=== PATIENT | female | born 1965 | race Caucasian/White ===

== ENCOUNTER 2017-12-03 19:58 | Emergency (ER) | payer MEDICAID ==
[~2017-12-03] VITALS: Ht 175.3 cm; Wt 110.4 kg
[~2017-12-03 19:58] MED LIST: ATOR20TA PO; CEPH250T PO; CLA10T PO; CLON-529 PO; GABA300C PO; IBUP-1986 PO; LEVA15HF4 IH; METF10002 PO; METF500T PO; NORCO10T PO; ONDA4TAB12 PO; PARO40TA45 PO; PHEN-873 PO; VALS40TA2 PO
[2017-12-03] MEDS ORDERED: normal saline 1000ML IV soln IVB ONE (21:20)
[2017-12-03] MEDS ORDERED: insulin regular, human 10 units/0.1 ml syringe SQ ONE ×2 (21:25)
[2017-12-03 22:31] LABS: CLARITY,URINE CLEAR (Clear); COLOR,URINE YELLOW (Yellow); GLUCOSE, URINE >=1000 mg/dl (Neg); KETONES,URINE NEGATIVE (Neg); LEUKOCYTE ESTERASE ,URINE NEGATIVE (Neg); NITRITES, URINE NEGATIVE (Neg); OCCULT BLOOD,URINE NEGATIVE (Neg); PH,URINE 5.5 (4.8-8.0); PROTEIN,URINE NEGATIVE (Neg); UA COLLECTION TYPE CLN CATCH MIDSTREAM; UROBILINOGEN,URINE 0.2 E.U/dL (0.2-1.0)
[2017-12-03 22:37] LABS: BACTERIA,URINE 1+ /HPF (Neg); RBC,URINE 0-2 /HPF (0-2); SQUAMOUS EPITHELIAL CELL,UR MANY /LPF (FEW); WBC,URINE 0-4 /HPF (0-4)
[2017-12-03] MEDS ORDERED: HYDROcodone/acetaminophen 10/325mg tab PO ONE (22:45)
[2017-12-03 22:47] LABS: BASOPHILS % (AUTO) 0.5 % (0-1); EOSINOPHILS # (AUTO) 0.2 X10'3 (0-0.9); EOSINOPHILS % (AUTO) 2.7 % (0-6); HEMATOCRIT 35.4 % (35.0-45.0); HEMOGLOBIN 11.7 g/dl (12.0-16.0); LYMPHOCYTES # (AUTO) 1.2 X10'3 (1.1-4.8); LYMPHOCYTES % (AUTO) 18.7 % (21-51); MEAN CORPUSCULAR HGB CONC 33.2 % (33.0-36.5); MEAN CORPUSCULAR VOLUME 81.4 FL (78-98); MEAN PLATELET VOLUME 8.4 FL (7.4-10.4); MONOCYTES # (AUTO) 0.3 X10'3 (0-0.9); MONOCYTES % (AUTO) 4.2 % (2-12); NEUTROPHILS # (AUTO) 4.7 X10'3 (1.8-7.7); NEUTROPHILS % (AUTO) 73.9 % (42-75); PLATELET COUNT 175 X10'3 (140-440); RED BLOOD COUNT 4.35 X10'6 (4.20-5.60); RED CELL DISTRIBUTION WIDTH 14.2 % (11.5-14.5); WHITE BLOOD COUNT 6.3 X10'3 (4.5-11.0)
[2017-12-03 23:04] LABS: ALANINE AMINOTRANSFERASE 29 U/L (12-78); ALBUMIN 3.1 G/DL (3.4-5.0); ALKALINE PHOSPHATASE 146 IU/L (46-116); ANION GAP 9 (8-16); ASPARTATE AMINO TRANSFERASE 17 U/L (10-37); BILIRUBIN,TOTAL 0.2 MG/DL (0.1-1.0); BLOOD UREA NITROGEN 13 MG/DL (7-18); CALCIUM 8.7 MG/DL (8.5-10.1); CHLORIDE 105 MMOL/L (99-107); CREATININE 0.65 MG/DL (0.40-0.90); GLUCOSE 268 MG/DL (70-104); POTASSIUM 3.7 MMOL/L (3.5-5.1); SODIUM 141 MMOL/L (135-145); TOTAL PROTEIN 6.2 G/DL (6.4-8.2); eGFR > 90 ML/MIN
[2017-12-03 23:10] VITALS: BP 157/84
[2017-12-04] MEDS ORDERED: gabapentin 400mg capsule PO SCH
== END 2017-12-03 23:58 | disposition home or self-care (01) ==
LOC: ER 19:58
DX: E11.65 Type 2 diabetes mellitus with hyperglycemia (principal); I10 Essential (primary) hypertension; J44.9 Chronic obstructive pulmonary disease, unspecified; G89.29 Other chronic pain; E78.00 Pure hypercholesterolemia, unspecified; E11.42 Type 2 diabetes mellitus with diabetic polyneuropathy; Z79.84 Long term (current) use of oral hypoglycemic drugs; Z79.899 Other long term (current) drug therapy; Z56.0 Unemployment, unspecified
CPT/HCPCS: 36415; 80053; 81001; 82948; 85025; 96360; 96361; 96372; 99285; J1815; J7030

== ENCOUNTER 2018-04-23 22:45 | Emergency (ER) | payer MEDICAID ==
[~2018-04-23] VITALS: Ht 157.5 cm; Wt 96.0 kg
[~2018-04-23 22:45] MED LIST changes: -CEPH250T PO; -METF10002 PO; +METF10004 PO
[2018-04-23 23:13] LABS: URINE HCG NEGATIVE (NEG)
[2018-04-23 23:31] LABS: CLARITY,URINE SLIGHTLY CLOUDY (Clear); COLOR,URINE YELLOW (Yellow); GLUCOSE, URINE 500 mg/dl (Neg); KETONES,URINE TRACE mg/dl (Neg); LEUKOCYTE ESTERASE ,URINE NEGATIVE (Neg); NITRITES, URINE NEGATIVE (Neg); OCCULT BLOOD,URINE TRACE-INTACT (Neg); PH,URINE 5.5 (4.8-8.0); PROTEIN,URINE TRACE mg/dl (Neg); UROBILINOGEN,URINE 0.2 E.U/dL (0.2-1.0)
[2018-04-23 23:32] LABS: UA COLLECTION TYPE CLN CATCH MIDSTREAM
[2018-04-23 23:38] LABS: BASOPHILS % (AUTO) 0.4 % (0-1); EOSINOPHILS # (AUTO) 0.2 X10'3 (0-0.9); EOSINOPHILS % (AUTO) 2.7 % (0-6); HEMATOCRIT 40.9 % (35.0-45.0); HEMOGLOBIN 14.1 g/dl (12.0-16.0); LYMPHOCYTES # (AUTO) 1.5 X10'3 (1.1-4.8); LYMPHOCYTES % (AUTO) 22.5 % (21-51); MEAN CORPUSCULAR HEMOGLOBIN 28.3 PG (27.0-31.0); MEAN CORPUSCULAR HGB CONC 34.3 % (33.0-36.5); MEAN CORPUSCULAR VOLUME 82.4 FL (78-98); MEAN PLATELET VOLUME 8.3 FL (7.4-10.4); MONOCYTES # (AUTO) 0.3 X10'3 (0-0.9); MONOCYTES % (AUTO) 4.1 % (2-12); NEUTROPHILS # (AUTO) 4.7 X10'3 (1.8-7.7); NEUTROPHILS % (AUTO) 70.3 % (42-75); PLATELET COUNT 220 X10'3 (140-440); RED BLOOD COUNT 4.97 X10'6 (4.20-5.60); RED CELL DISTRIBUTION WIDTH 14.3 % (11.5-14.5); WHITE BLOOD COUNT 6.7 X10'3 (4.5-11.0)
[2018-04-23 23:46] VITALS: BP 155/110
[2018-04-23 23:48] LABS: PROTHROMBIN TIME 10.3 SECONDS (9.0-12.0)
[2018-04-23 23:54] LABS: BACTERIA,URINE 2+ /HPF (Neg); MUCUS STRANDS FEW /LPF (Neg); RBC,URINE 0-2 /HPF (0-2); SQUAMOUS EPITHELIAL CELL,UR MANY /LPF (FEW); WBC,URINE 0-4 /HPF (0-4)
[2018-04-23 23:55] LABS: ALANINE AMINOTRANSFERASE 17 U/L (12-78); ALBUMIN 3.6 G/DL (3.4-5.0); ALKALINE PHOSPHATASE 192 IU/L (46-116); ANION GAP 10 (8-16); ASPARTATE AMINO TRANSFERASE 15 U/L (10-37); BILIRUBIN,TOTAL 0.3 MG/DL (0.1-1.0); BLOOD UREA NITROGEN 23 MG/DL (7-18); BUN/CREATININE RATIO 29.1 (6.6-38.0); CALCIUM 9.6 MG/DL (8.5-10.1); CHLORIDE 100 MMOL/L (99-107); CREATININE 0.79 MG/DL (0.40-0.90); GLUCOSE 341 MG/DL (70-104); POTASSIUM 4.3 MMOL/L (3.5-5.1); SODIUM 134 MMOL/L (135-145); TOTAL CARBON DIOXIDE 23.7 MMOL/L (24-32); TOTAL PROTEIN 7.2 G/DL (6.4-8.2); eGFR 76 ML/MIN
[2018-04-24] MEDS ORDERED: normal saline 1000ML IV soln IVB ONE (00:10)
[2018-04-24] MEDS ORDERED: ondansetron/PF 4mg/2ml inj IV ONE (00:10)
[2018-04-24] MEDS ORDERED: PANT20TA3 PO (00:29)
[2018-04-24] MEDS ORDERED: ONDA8TAB9 PO (00:29)
[2018-04-24] MEDS ORDERED: pantoprazole 40 MG vial IV ONE (00:30)
[2018-04-25] MEDS ORDERED: CYCL-1 PO (16:28)
== END 2018-04-24 01:12 | disposition home or self-care (01) ==
LOC: ER 22:46
DX: E11.65 Type 2 diabetes mellitus with hyperglycemia (principal); E11.40 Type 2 diabetes mellitus with diabetic neuropathy, unspecified; E78.00 Pure hypercholesterolemia, unspecified; I10 Essential (primary) hypertension; J44.9 Chronic obstructive pulmonary disease, unspecified; G89.29 Other chronic pain; M54.9 Dorsalgia, unspecified; Z90.49 Acquired absence of other specified parts of digestive tract; Z98.51 Tubal ligation status
CPT/HCPCS: 36415; 80053; 81001; 81025; 82948; 85025; 85610; 96361; 96374; 96375; 99284; C9113; J2405; J7030

== ENCOUNTER 2018-06-10 01:26 | Emergency (ER) | payer MEDICAID ==
[~2018-06-10] VITALS: Ht 175.3 cm; Wt 106.2 kg
[~2018-06-10 01:26] MED LIST changes: +CYCL-1 PO; +METF-438 PO; -METF10004 PO; +ONDA8TAB9 PO; +PANT20TA3 PO; +PHEN-786 PO; -PHEN-873 PO
[2018-06-10 01:30] VITALS: BP 169/102
[2018-06-10] MEDS ORDERED: HYDROcodone/acetaminophen 10/325mg tab PO ONE (02:00)
== END 2018-06-10 02:57 | disposition home or self-care (01) ==
LOC: ER 01:27
DX: G89.29 Other chronic pain (principal); M54.9 Dorsalgia, unspecified; I10 Essential (primary) hypertension; E78.00 Pure hypercholesterolemia, unspecified; E11.42 Type 2 diabetes mellitus with diabetic polyneuropathy; J44.9 Chronic obstructive pulmonary disease, unspecified; Z90.49 Acquired absence of other specified parts of digestive tract; Z79.84 Long term (current) use of oral hypoglycemic drugs; Z79.899 Other long term (current) drug therapy; Z56.0 Unemployment, unspecified
CPT/HCPCS: 99282

== ENCOUNTER 2018-08-19 20:28 | Inpatient (IN) | payer MEDICAID ==
[~2018-08-19] VITALS: Ht 175.3 cm; Wt 102.0 kg
[2018-08-19 20:58] LABS: BASOPHILS % (AUTO) 0.1 % (0-1); EOSINOPHILS % (AUTO) 0.4 % (0-6); HEMATOCRIT 42.8 % (35.0-45.0); HEMOGLOBIN 13.9 g/dl (12.0-16.0); LYMPHOCYTES # (AUTO) 0.5 X10'3 (1.1-4.8); LYMPHOCYTES % (AUTO) 5.2 % (21-51); MEAN CORPUSCULAR HGB CONC 32.5 % (33.0-36.5); MEAN CORPUSCULAR VOLUME 86.2 FL (78-98); MEAN PLATELET VOLUME 8.3 FL (7.4-10.4); MONOCYTES # (AUTO) 0.3 X10'3 (0-0.9); MONOCYTES % (AUTO) 3.2 % (2-12); NEUTROPHILS # (AUTO) 8.2 X10'3 (1.8-7.7); NEUTROPHILS % (AUTO) 91.1 % (42-75); PLATELET COUNT 198 X10'3 (140-440); RED BLOOD COUNT 4.97 X10'6 (4.20-5.60)
[2018-08-19 21:18] LABS: ALANINE AMINOTRANSFERASE 20 U/L (12-78); ALBUMIN 3.1 G/DL (3.4-5.0); ALBUMIN/GLOBULIN RATIO 0.6 (1.1-1.5); ALKALINE PHOSPHATASE 175 IU/L (46-116); ANION GAP 15 (8-16); ASPARTATE AMINO TRANSFERASE 18 U/L (10-37); BILIRUBIN,TOTAL 0.6 MG/DL (0.1-1.0); BLOOD UREA NITROGEN 13 MG/DL (7-18); BUN/CREATININE RATIO 16.9 (6.6-38.0); CALCIUM 9.6 MG/DL (8.5-10.1); CHLORIDE 99 MMOL/L (99-107); CREATININE 0.77 MG/DL (0.40-0.90); GLUCOSE 278 MG/DL (70-104); LIPASE 162 U/L (73-393); POTASSIUM 3.9 MMOL/L (3.5-5.1); SODIUM 137 MMOL/L (135-145); eGFR 78 ML/MIN
[2018-08-19 21:19] LABS: PROTHROMBIN TIME 9.9 SECONDS (9.0-12.0)
[2018-08-19 21:23] LABS: CLARITY,URINE SLIGHTLY CLOUDY (Clear); COLOR,URINE YELLOW (Yellow); GLUCOSE, URINE >=1000 mg/dl (Neg); KETONES,URINE 15 mg/dl (Neg); NITRITES, URINE NEGATIVE (Neg); OCCULT BLOOD,URINE TRACE-INTACT (Neg); PROTEIN,URINE 100 mg/dl (Neg); UA COLLECTION TYPE VOIDED
[2018-08-19 21:24] LABS: BACTERIA,URINE FEW /HPF (Neg); LEUKOCYTE ESTERASE ,URINE NEGATIVE (Neg); RBC,URINE 0-2 /HPF (0-2); SQUAMOUS EPITHELIAL CELL,UR MODERATE /LPF (FEW); WBC,URINE 0-4 /HPF (0-4)
--- NOTE | 2018-08-19 22:29 | NUR ---
DR ADAMES AT BEDSIDE WITH THE PT
[2018-08-19] MEDS ORDERED: dexamethasone sod phosphate 10mg/ml inj IV STA (22:43)
[2018-08-19] MEDS ORDERED: vancomycin/NS 1 GM ADD-VANTAGE 250 ML IV ONE (22:45)
[2018-08-19] MEDS ORDERED: piperacillin/tazo 3.375gm/50ml 50 ML IV ONE (22:45)
[2018-08-19] MEDS ORDERED: ipratropium/albuterol 3ml nebule NEB ONE (22:45)
[2018-08-19] MEDS ORDERED: normal saline 1000ML IV soln IV ONE (22:45)
[2018-08-19 23:35] LABS: ABG BASE EXCESS 0.6 mmol/L (-2.0-3.0); ABG HCO3 24.5 mmol/L (22.0-26.0); ABG OXYGEN SATURATION 86.7 % (95-98); ABG PCO2 (T) 37.2 mmHg (32.0-45.0); ABG PH (T) 7.438 (7.350-7.450); ABG PO2 (T) 48.5 mmHg (83-108); ALLEN'S TEST Positive; FCOHb 1.7 % (0.5-1.5); FMetHb 0.3 % (0.3-1.12); PATIENT TEMPERATURE 37.1; RESPIRATORY RATE (OBSERVED) 20 b/min; TOTAL HEMOGLOBIN 12.5 G/dl (12.0-16.0)
[2018-08-19 23:36] LABS: MAGNESIUM 1.6 MG/DL (1.5-2.4)
[2018-08-19] MEDS ORDERED: GABA600T2 PO (23:54)
[2018-08-19] MEDS ORDERED: FAMO20TA8 PO (23:54)
[2018-08-19] MEDS ORDERED: INSU100I31 SUBCUT (23:54)
[2018-08-19] MEDS ORDERED: LOSA25TA96 PO (23:54)
[2018-08-20] MEDS ORDERED: acetaminophen 325mg tablet PO PRN ×2 (00:15)
[2018-08-20] MEDS ORDERED: MESSAGE TO PHARMACY PO ONE (00:15)
[2018-08-20] MEDS ORDERED: morphine 4 MG/ML inj SYRINge IV PRN (00:15)
[2018-08-20] MEDS ORDERED: acetaminophen 650mg rectal suppository RC PRN (00:15)
[2018-08-20] MEDS ORDERED: diphenhydrAMINE 50 mg/ml inj IV PRN (00:15)
[2018-08-20] MEDS ORDERED: mag hydrox/Alum hydrox/simeth 30ml oral suspension PO PRN (00:15)
[2018-08-20] MEDS ORDERED: dextrose ORAL solution 15 GM/59 ML bottle PO PRN ×2 (00:15)
[2018-08-20] MEDS ORDERED: ondansetron/PF 4mg/2ml inj IV PRN (00:15)
[2018-08-20] MEDS ORDERED: metoclopramide 5 mg/ml inj IV PRN (00:15)
[2018-08-20] MEDS ORDERED: magnesium hydroxide 30ml (MOM) UD suspension PO PRN (00:15)
[2018-08-20] MEDS ORDERED: HYDROmorphone 1 mg/ml syringe IV PRN (00:15)
[2018-08-20] MEDS ORDERED: HYDROcodone/acetaminophen 10/325mg tab PO PRN (00:15)
[2018-08-20] MEDS ORDERED: diphenhydrAMINE 25mg capsule PO PRN (00:15)
[2018-08-20] MEDS ORDERED: glucagon, human recombinant 1mg kit SUBCUT PRN (00:15)
[2018-08-20] MEDS ORDERED: dextrose 50%-water 50ml dispensing syringe IV PRN ×2 (00:15)
[2018-08-20] MEDS ORDERED: bisacodyl 10mg suppository rectal RC PRN (00:15)
[2018-08-20 00:45] LABS: HEMOGLOBIN A1C 8.4 % (4.5-6.2)
--- NOTE | 2018-08-20 00:45 | NUR ---
PT ADVISED US THAT SHE JUST TOOK HER HOME RX OF NORCO. WILL NOT ADMIN NORCO ORDERED FOR 0200.
[2018-08-20] MEDS: HYDROcodone/acetaminophen 10/325mg tab PO SCH ×5 (00:46→20:18)
[2018-08-20 00:54] LABS: PHOSPHORUS 2.3 MG/DL (2.3-4.5)
[2018-08-20] MEDS: sodium chloride 0.45% 1,000 ML IV SCH ×3 (04:00→20:12)
[2018-08-20] MEDS: losartan 50mg tablet PO SCH (08:00)
[2018-08-20] MEDS: insulin Lispro (HumaLOG) vial - multi-dose SQ SCH ×4 (09:24→21:37)
[2018-08-20] MEDS: loratadine 10mg tablet PO SCH (10:04)
[2018-08-20] MEDS: famotidine 20mg tablet PO SCH ×2 (10:06→20:17)
[2018-08-20] MEDS: methylPREDNISolone sod succ 125mg/2ml vial IV SCH ×2 (10:07→20:17)
[2018-08-20] MEDS: CefTRIAXone/D5W-Rocephin 1gm 50 ML IV SCH ×2 (10:07→20:17)
[2018-08-20] MEDS: heparin, porcine 5000 units/ml vial SQ SCH ×2 (10:07→16:00)
[2018-08-20] MEDS: gabapentin 300mg capsule PO SCH ×4 (10:07→20:17)
[2018-08-20] MEDS: azithromycin/NS 500mg/250ml 250 ML IV SCH (12:16)
[2018-08-20] MEDS ORDERED: HYDROcodone/acetaminophen 10/325mg tab PO SCH ×2 (16:00)
--- NOTE | 2018-08-20 18:57 | NUR ---
gave report to meghann sellers
[2018-08-20 19:00] VITALS: BP 116/52
[2018-08-20] MEDS: ipratropium/albuterol 3ml nebule NEB PRN (20:02)
[2018-08-20] MEDS: nicotine 21mg patch - 24 hr TD SCH (20:16)
[2018-08-20] MEDS: lactobacillus rhamnosus 10,000 MMU CELLS/CAPSULE PO SCH (20:17)
[2018-08-20] MEDS: atorvastatin 20mg tablet PO SCH (20:17)
[2018-08-20] MEDS ORDERED: temazepam 15mg capsule PO PRN (21:00)
[2018-08-20] MEDS: PARoxetine 20mg tablet PO SCH (21:31)
[2018-08-21] VITALS: BP 119/58
[2018-08-21] MEDS: heparin, porcine 5000 units/ml vial SQ SCH ×4 (00:08→23:43)
[2018-08-21] MEDS: HYDROcodone/acetaminophen 10/325mg tab PO SCH ×7 (00:09→23:43)
[2018-08-21] MEDS: sodium chloride 0.45% 1,000 ML IV SCH (04:35)
[2018-08-21 06:05] LABS: BASOPHILS % (AUTO) 0.1 % (0-1); EOSINOPHILS % (AUTO) 0.1 % (0-6); HEMATOCRIT 33.3 % (35.0-45.0); HEMOGLOBIN 11.2 g/dl (12.0-16.0); LYMPHOCYTES # (AUTO) 0.6 X10'3 (1.1-4.8); LYMPHOCYTES % (AUTO) 11.3 % (21-51); MEAN CORPUSCULAR HEMOGLOBIN 29.5 PG (27.0-31.0); MEAN CORPUSCULAR HGB CONC 33.6 % (33.0-36.5); MEAN CORPUSCULAR VOLUME 87.7 FL (78-98); MEAN PLATELET VOLUME 8.6 FL (7.4-10.4); MONOCYTES # (AUTO) 0.2 X10'3 (0-0.9); NEUTROPHILS # (AUTO) 4.8 X10'3 (1.8-7.7); NEUTROPHILS % (AUTO) 84.5 % (42-75); PLATELET COUNT 149 X10'3 (140-440); RED BLOOD COUNT 3.79 X10'6 (4.20-5.60); RED CELL DISTRIBUTION WIDTH 13.1 % (11.5-14.5); WHITE BLOOD COUNT 5.6 X10'3 (4.5-11.0)
[2018-08-21 06:29] LABS: ALANINE AMINOTRANSFERASE 25 U/L (12-78); ALBUMIN 2.3 G/DL (3.4-5.0); ALBUMIN/GLOBULIN RATIO 0.5 (1.1-1.5); ALKALINE PHOSPHATASE 113 IU/L (46-116); ANION GAP 11 (8-16); ASPARTATE AMINO TRANSFERASE 21 U/L (10-37); BILIRUBIN,TOTAL 0.2 MG/DL (0.1-1.0); BLOOD UREA NITROGEN 23 MG/DL (7-18); BUN/CREATININE RATIO 32.4 (6.6-38.0); CALCIUM 8.8 MG/DL (8.5-10.1); CHLORIDE 104 MMOL/L (99-107); CREATININE 0.71 MG/DL (0.40-0.90); GLUCOSE 376 MG/DL (70-104); POTASSIUM 4.5 MMOL/L (3.5-5.1); SODIUM 138 MMOL/L (135-145); TOTAL PROTEIN 6.5 G/DL (6.4-8.2); eGFR 86 ML/MIN
--- NOTE | 2018-08-21 06:45 | NUR ---
Problems reprioritized. Patient report given, questions answered & plan of care reviewed with Blaise POWELL. Addendum: 08/21/18 at 0645 by Shameka Jon RN Amended: Links added.
--- NOTE | 2018-08-21 06:50 | NUR ---
Patient in room [facility]. I have received report from RENUKA POWELL and had the opportunity to ask questions and assume patient care.
[2018-08-21 07:11] VITALS: BP 133/60
[2018-08-21] MEDS: methylPREDNISolone sod succ 125mg/2ml vial IV SCH ×2 (09:42→19:27)
[2018-08-21] MEDS: losartan 50mg tablet PO SCH (09:42)
[2018-08-21] MEDS: famotidine 20mg tablet PO SCH ×2 (09:43→19:23)
[2018-08-21] MEDS: loratadine 10mg tablet PO SCH (09:43)
[2018-08-21] MEDS: lactobacillus rhamnosus 10,000 MMU CELLS/CAPSULE PO SCH ×2 (09:43→19:23)
[2018-08-21] MEDS: gabapentin 300mg capsule PO SCH ×4 (09:45→21:30)
[2018-08-21] MEDS: CefTRIAXone/D5W-Rocephin 1gm 50 ML IV SCH ×2 (09:45→19:23)
[2018-08-21] MEDS: nicotine 21mg patch - 24 hr TD SCH (09:47)
[2018-08-21] MEDS: insulin Lispro (HumaLOG) vial - multi-dose SQ SCH ×4 (10:04→21:33)
[2018-08-21] MEDS: azithromycin/NS 500mg/250ml 250 ML IV SCH (11:18)
[2018-08-21 12:00] VITALS: BP 125/64
--- NOTE | 2018-08-21 13:15 | NUR ---
DM consult: A1C 8.4. Pt admit w/ N/V GLU 345, urine ketones, GLU, and protein highs. No DX DKA this admit. Pt currently PO 100% meals meeting needs w/ hx vertical sleeve. LBM 08/20. RD d/w RN for long-acting GLU coverage per protocol if MD approves given GLU 400s on solumedrol and currently 372 up from admit and pt takes metformin 1000mg BID at home. Pt seen by RD for written/verbal DM ed w/ RD contact information provided. Pt reports not much DM ed since DX 2004; currently tired and falling asleep and agrees to reinforcement of DM ed at later date. Will continue to monitor. Rec; 1. continue carb controlled diet 2. DM ed reinforcement prior to d/c 3. long-acting GLU coverage per hyperglycemic protocol 4. wt per rx Addendum: 08/21/18 at [address] Amended: Links added.
[2018-08-21 18:00] VITALS: BP 138/69
--- NOTE | 2018-08-21 18:30 | NUR ---
Patient in room [facility]. I have received report from Blaise POWELL and had the opportunity to ask questions and assume patient care.
--- NOTE | 2018-08-21 18:46 | NUR ---
Problems reprioritized. Patient report given, questions answered & plan of care reviewed with Gallo POWELL.
[2018-08-21] MEDS: PARoxetine 20mg tablet PO SCH (21:30)
[2018-08-21] MEDS: atorvastatin 20mg tablet PO SCH (21:31)
[2018-08-22] VITALS: BP 167/85
[2018-08-22] MEDS ORDERED: hydrALAZINE 20mg/ml inj. IV PRN (02:00)
[2018-08-22] MEDS: HYDROcodone/acetaminophen 10/325mg tab PO SCH ×5 (05:08→20:15)
[2018-08-22] MEDS: ipratropium/albuterol 3ml nebule NEB PRN (05:15)
[2018-08-22 05:27] LABS: BASOPHILS % (AUTO) 0.1 % (0-1); EOSINOPHILS % (AUTO) 0.1 % (0-6); HEMOGLOBIN 11.9 g/dl (12.0-16.0); LYMPHOCYTES # (AUTO) 0.6 X10'3 (1.1-4.8); LYMPHOCYTES % (AUTO) 9.1 % (21-51); MEAN CORPUSCULAR HEMOGLOBIN 29.8 PG (27.0-31.0); MEAN CORPUSCULAR HGB CONC 34.1 % (33.0-36.5); MEAN CORPUSCULAR VOLUME 87.3 FL (78-98); MEAN PLATELET VOLUME 8.4 FL (7.4-10.4); MONOCYTES # (AUTO) 0.3 X10'3 (0-0.9); MONOCYTES % (AUTO) 4.4 % (2-12); NEUTROPHILS # (AUTO) 5.7 X10'3 (1.8-7.7); NEUTROPHILS % (AUTO) 86.3 % (42-75); PLATELET COUNT 171 X10'3 (140-440); WHITE BLOOD COUNT 6.6 X10'3 (4.5-11.0)
[2018-08-22] MEDS: nicotine 21mg patch - 24 hr TD SCH (05:34)
[2018-08-22 05:55] LABS: ALANINE AMINOTRANSFERASE 35 U/L (12-78); ALBUMIN 2.3 G/DL (3.4-5.0); ALBUMIN/GLOBULIN RATIO 0.6 (1.1-1.5); ALKALINE PHOSPHATASE 121 IU/L (46-116); ANION GAP 10 (8-16); ASPARTATE AMINO TRANSFERASE 22 U/L (10-37); BILIRUBIN,TOTAL 0.2 MG/DL (0.1-1.0); BLOOD UREA NITROGEN 29 MG/DL (7-18); CHLORIDE 104 MMOL/L (99-107); CREATININE 0.63 MG/DL (0.40-0.90); GLUCOSE 411 MG/DL (70-104); POTASSIUM 3.8 MMOL/L (3.5-5.1); SODIUM 137 MMOL/L (135-145); TOTAL CARBON DIOXIDE 23.1 MMOL/L (24-32); TOTAL PROTEIN 6.4 G/DL (6.4-8.2); eGFR > 90 ML/MIN
--- NOTE | 2018-08-22 06:46 | NUR ---
Problems reprioritized. Patient report given, questions answered & plan of care reviewed with Deepti POWELL.
[2018-08-22 07:45] VITALS: BP 147/60
[2018-08-22] MEDS: CefTRIAXone/D5W-Rocephin 1gm 50 ML IV SCH ×2 (09:03→20:11)
[2018-08-22] MEDS: famotidine 20mg tablet PO SCH ×2 (09:04→20:16)
[2018-08-22] MEDS: lactobacillus rhamnosus 10,000 MMU CELLS/CAPSULE PO SCH ×2 (09:04→20:11)
[2018-08-22] MEDS: gabapentin 300mg capsule PO SCH ×4 (09:04→20:16)
[2018-08-22] MEDS: azithromycin 250mg tablet PO SCH (09:04)
[2018-08-22] MEDS: losartan 50mg tablet PO SCH (09:04)
[2018-08-22] MEDS: loratadine 10mg tablet PO SCH (09:05)
[2018-08-22] MEDS: heparin, porcine 5000 units/ml vial SQ SCH ×2 (09:05→16:17)
[2018-08-22] MEDS: methylPREDNISolone sod succ 125mg/2ml vial IV SCH ×2 (09:05→20:11)
[2018-08-22] MEDS: insulin Lispro (HumaLOG) vial - multi-dose SQ SCH ×3 (09:35→19:31)
[2018-08-22 11:30] VITALS: BP 168/73
--- NOTE | 2018-08-22 16:20 | NUR ---
Pt unable to wake during RD return for DM ed reinforcement; will return once pt more appropriate for ed. Addendum: 08/22/18 at [address] Amended: Links added.
--- NOTE | 2018-08-22 18:26 | NUR ---
Problems reprioritized. Patient report given, questions answered & plan of care reviewed with mateo rn.
--- NOTE | 2018-08-22 18:30 | NUR ---
Patient in room [facility]. I have received report from SHERRY Tatum and had the opportunity to ask questions and assume patient care.
[2018-08-22 19:30] VITALS: BP 131/73
[2018-08-22] MEDS: atorvastatin 20mg tablet PO SCH (20:16)
[2018-08-22] MEDS: PARoxetine 20mg tablet PO SCH (20:16)
[2018-08-23] VITALS: BP 144/60
[2018-08-23] MEDS: HYDROcodone/acetaminophen 10/325mg tab PO SCH ×6 (00:15→21:38)
[2018-08-23] MEDS: heparin, porcine 5000 units/ml vial SQ SCH ×3 (00:15→16:25)
[2018-08-23 05:23] LABS: ALANINE AMINOTRANSFERASE 40 U/L (12-78); ALBUMIN 2.4 G/DL (3.4-5.0); ALBUMIN/GLOBULIN RATIO 0.6 (1.1-1.5); ALKALINE PHOSPHATASE 116 IU/L (46-116); ANION GAP 10 (8-16); ASPARTATE AMINO TRANSFERASE 18 U/L (10-37); BILIRUBIN,TOTAL 0.3 MG/DL (0.1-1.0); BLOOD UREA NITROGEN 25 MG/DL (7-18); BUN/CREATININE RATIO 39.7 (6.6-38.0); CALCIUM 9.2 MG/DL (8.5-10.1); CHLORIDE 104 MMOL/L (99-107); CREATININE 0.63 MG/DL (0.40-0.90); GLUCOSE 230 MG/DL (70-104); POTASSIUM 4.3 MMOL/L (3.5-5.1); SODIUM 141 MMOL/L (135-145); TOTAL CARBON DIOXIDE 27.5 MMOL/L (24-32); TOTAL PROTEIN 6.2 G/DL (6.4-8.2); eGFR > 90 ML/MIN
[2018-08-23 05:33] LABS: BASOPHILS % (AUTO) 0.1 % (0-1); EOSINOPHILS % (AUTO) 0.1 % (0-6); HEMATOCRIT 36.3 % (35.0-45.0); HEMOGLOBIN 12.1 g/dl (12.0-16.0); LYMPHOCYTES % (AUTO) 14.1 % (21-51); MEAN CORPUSCULAR HEMOGLOBIN 28.7 PG (27.0-31.0); MEAN CORPUSCULAR HGB CONC 33.4 % (33.0-36.5); MEAN PLATELET VOLUME 8.5 FL (7.4-10.4); MONOCYTES # (AUTO) 0.4 X10'3 (0-0.9); NEUTROPHILS # (AUTO) 5.8 X10'3 (1.8-7.7); NEUTROPHILS % (AUTO) 79.7 % (42-75); PLATELET COUNT 185 X10'3 (140-440); RED BLOOD COUNT 4.22 X10'6 (4.20-5.60); RED CELL DISTRIBUTION WIDTH 12.9 % (11.5-14.5); WHITE BLOOD COUNT 7.2 X10'3 (4.5-11.0)
--- NOTE | 2018-08-23 06:30 | NUR ---
report given to SHERRY Tatum
[2018-08-23 07:50] VITALS: BP 162/66
[2018-08-23] MEDS: insulin Lispro (HumaLOG) vial - multi-dose SQ SCH ×4 (08:12→21:33)
[2018-08-23] MEDS: CefTRIAXone/D5W-Rocephin 1gm 50 ML IV SCH ×2 (08:15→21:21)
[2018-08-23] MEDS: gabapentin 300mg capsule PO SCH ×4 (08:16→21:37)
[2018-08-23] MEDS: famotidine 20mg tablet PO SCH ×2 (08:16→21:38)
[2018-08-23] MEDS: azithromycin 250mg tablet PO SCH (08:17)
[2018-08-23] MEDS: losartan 50mg tablet PO SCH (08:17)
[2018-08-23] MEDS: lactobacillus rhamnosus 10,000 MMU CELLS/CAPSULE PO SCH ×2 (08:17→21:37)
[2018-08-23] MEDS: loratadine 10mg tablet PO SCH (08:18)
[2018-08-23] MEDS: methylPREDNISolone sod succ 125mg/2ml vial IV SCH ×2 (08:22→21:25)
[2018-08-23] MEDS: nicotine 21mg patch - 24 hr TD SCH (08:27)
--- NOTE | 2018-08-23 08:35 | NUR ---
CLARITIN 10MG PO AND ZITHROMAX 250MG PO WOULD NOT SCAN. ADMINISTERED MEDICATIONS AFTER MEDICATIONS CHECKS. PHARMACY NOTIFIED.
[2018-08-23 11:28] VITALS: BP 156/83
[2018-08-23] MEDS ORDERED: NICO-687 TD (12:27)
[2018-08-23] MEDS ORDERED: PRED10TA23 PO (12:27)
[2018-08-23] MEDS ORDERED: LACT1CAP26 PO (12:27)
[2018-08-23] MEDS ORDERED: LEVO750T21 PO (12:27)
--- NOTE | 2018-08-23 15:06 | NUR ---
Pt more AO and seen by IGOR for verbal DM ed reinforcement; encouraged to attend CDE course. Addendum: 08/23/18 at [address] Amended: Links added.
--- NOTE | 2018-08-23 18:20 | NUR ---
Patient in room [facility]. I have received report from Deepti POWELL and had the opportunity to ask questions and assume patient care. Patient finishing eating, will continue to monitor.
--- NOTE | 2018-08-23 18:20 | NUR ---
Problems reprioritized. Patient report given, questions answered & plan of care reviewed with SHERRY Mcdonnell.
[2018-08-23 19:00] VITALS: BP 128/68
[2018-08-23] MEDS ORDERED: insulin glargine (Lantus) pen - multi-dose SQ SCH (21:00)
[2018-08-23] MEDS: PARoxetine 20mg tablet PO SCH (21:37)
[2018-08-23] MEDS: atorvastatin 20mg tablet PO SCH (21:38)
[2018-08-23 23:00] VITALS: BP 153/76
[2018-08-24] MEDS: heparin, porcine 5000 units/ml vial SQ SCH ×2 (01:03→07:31)
[2018-08-24] MEDS: HYDROcodone/acetaminophen 10/325mg tab PO SCH ×4 (01:05→12:38)
--- NOTE | 2018-08-24 01:08 | NUR ---
Patient requesting second sandwich and yogurt. States that she understands that she will have BS, patient states I am starving and wasting away. Explained that high BS makes you feel hungry. Patient states she doesn't care and wants the sandwich and yogurt. Will provide R/T continued request and A/O x4 and making choice despite education. Will continue to monitor.
[2018-08-24 06:30] LABS: BASOPHILS % (AUTO) 0.1 % (0-1); EOSINOPHILS % (AUTO) 0 % (0-6); LYMPHOCYTES # (AUTO) 0.9 X10'3 (1.1-4.8); MEAN CORPUSCULAR HEMOGLOBIN 28.9 PG (27.0-31.0); MEAN CORPUSCULAR HGB CONC 33.4 % (33.0-36.5); MEAN CORPUSCULAR VOLUME 86.5 FL (78-98); MONOCYTES # (AUTO) 0.4 X10'3 (0-0.9); MONOCYTES % (AUTO) 4.9 % (2-12); NEUTROPHILS # (AUTO) 7.3 X10'3 (1.8-7.7); PLATELET COUNT 231 X10'3 (140-440); RED BLOOD COUNT 4.51 X10'6 (4.20-5.60); RED CELL DISTRIBUTION WIDTH 12.7 % (11.5-14.5); WHITE BLOOD COUNT 8.6 X10'3 (4.5-11.0)
[2018-08-24 06:50] LABS: ALANINE AMINOTRANSFERASE 46 U/L (12-78); ALBUMIN 2.5 G/DL (3.4-5.0); ALBUMIN/GLOBULIN RATIO 0.6 (1.1-1.5); ALKALINE PHOSPHATASE 115 IU/L (46-116); ANION GAP 9 (8-16); ASPARTATE AMINO TRANSFERASE 20 U/L (10-37); BILIRUBIN,TOTAL 0.3 MG/DL (0.1-1.0); BLOOD UREA NITROGEN 28 MG/DL (7-18); BUN/CREATININE RATIO 34.6 (6.6-38.0); CALCIUM 9.2 MG/DL (8.5-10.1); CHLORIDE 100 MMOL/L (99-107); CREATININE 0.81 MG/DL (0.40-0.90); GLUCOSE 416 MG/DL (70-104); POTASSIUM 3.8 MMOL/L (3.5-5.1); SODIUM 137 MMOL/L (135-145); TOTAL CARBON DIOXIDE 27.9 MMOL/L (24-32); TOTAL PROTEIN 6.4 G/DL (6.4-8.2); eGFR 74 ML/MIN
--- NOTE | 2018-08-24 06:54 | NUR ---
Problems reprioritized. Patient report given, questions answered & plan of care reviewed with Jacklyn. Patient requesting pain medication, will be provided by dayshift.
--- NOTE | 2018-08-24 06:55 | NUR ---
Patient in room [facility]. I have received report from SHERRY Mcdonnell and had the opportunity to ask questions and assume patient care.
[2018-08-24 07:08] VITALS: BP 149/63
[2018-08-24] MEDS: CefTRIAXone/D5W-Rocephin 1gm 50 ML IV SCH (07:27)
[2018-08-24] MEDS: methylPREDNISolone sod succ 125mg/2ml vial IV SCH (07:28)
[2018-08-24] MEDS: loratadine 10mg tablet PO SCH (07:28)
[2018-08-24] MEDS: losartan 50mg tablet PO SCH (07:28)
[2018-08-24] MEDS: gabapentin 300mg capsule PO SCH ×2 (07:29→12:35)
[2018-08-24] MEDS: lactobacillus rhamnosus 10,000 MMU CELLS/CAPSULE PO SCH (07:29)
[2018-08-24] MEDS: famotidine 20mg tablet PO SCH (07:29)
[2018-08-24] MEDS: azithromycin 250mg tablet PO SCH (07:29)
[2018-08-24] MEDS: nicotine 21mg patch - 24 hr TD SCH (07:30)
[2018-08-24] MEDS: insulin Lispro (HumaLOG) vial - multi-dose SQ SCH ×2 (08:53→13:49)
[2018-08-24 12:54] VITALS: BP 161/76
--- NOTE | 2018-08-24 14:57 | NUR ---
Patient discharged. All belongings sent. Patient wheel chaired out to lobby by staff her is waiting for her in lobby.Patients medications will be called into [facility]
== END 2018-08-24 14:45 | disposition home or self-care (01) | DRG 133 ==
LOC: ER 20:28 → ED HOLD 08-20 00:12 → SUR 3N 08-20 11:04
PROVIDERS: ADMIT Family Medicine; ATTEND Family Medicine
DX: J96.21 Acute and chronic respiratory failure with hypoxia (principal); J18.1 Lobar pneumonia, unspecified organism; E11.42 Type 2 diabetes mellitus with diabetic polyneuropathy; E11.65 Type 2 diabetes mellitus with hyperglycemia; J44.0 Chronic obstructive pulmonary disease with (acute) lower respiratory infection; E78.00 Pure hypercholesterolemia, unspecified; F17.210 Nicotine dependence, cigarettes, uncomplicated; F32.9 Major depressive disorder, single episode, unspecified; F41.9 Anxiety disorder, unspecified; M54.9 Dorsalgia, unspecified; G47.30 Sleep apnea, unspecified; G89.4 Chronic pain syndrome; I10 Essential (primary) hypertension; J44.1 Chronic obstructive pulmonary disease with (acute) exacerbation; M79.7 Fibromyalgia; Z79.4 Long term (current) use of insulin; Z79.891 Long term (current) use of opiate analgesic; Z91.14 Patient's other noncompliance with medication regimen; Z98.84 Bariatric surgery status; Z91.018 Allergy to other foods; Z90.49 Acquired absence of other specified parts of digestive tract; Z98.51 Tubal ligation status; Z79.899 Other long term (current) drug therapy; Z71.6 Tobacco abuse counseling
CPT/HCPCS: 36415; 36600; 71045; 80053; 81001; 82803; 82948; 83036; 83605; 83690; 83735; 83880; 84100; 84145; 84443; 84484; 85018; 85025; 85610; 87040; 87070; 87502; 87503; 93005; 94640; 94760; 96365; 96375; 99285; G0378; J0360; J0456; J0696; J1100; J1170; J1644; J1815; J2543; J2930; J3370

== ENCOUNTER 2018-10-18 15:20 | Emergency (ER) | payer MEDICAID ==
[~2018-10-18] VITALS: Ht 175.3 cm; Wt 100.0 kg
[~2018-10-18 15:20] MED LIST changes: -CLON-529 PO; -CYCL-1 PO; +FAMO20TA8 PO; -GABA300C PO; +GABA600T13 PO; +INSU100I31 SUBCUT; +LACT1CAP26 PO; +LOSA25TA96 PO; -METF-438 PO; -METF500T PO; +NICO-687 TD; -ONDA4TAB12 PO; -ONDA8TAB9 PO; -PANT20TA3 PO; -PHEN-786 PO; -VALS40TA2 PO
[2018-10-18 15:54] VITALS: BP 188/117
[2018-10-18] MEDS ORDERED: NAPR-56 PO (16:22)
[2018-10-18] MEDS ORDERED: HYDROcodone/acetaminophen 5mg/325mg tablet PO ONE (16:50)
== END 2018-10-18 17:19 | disposition home or self-care (01) ==
LOC: ER 15:20
DX: S60.812A Abrasion of left wrist, initial encounter (principal); I10 Essential (primary) hypertension; E78.00 Pure hypercholesterolemia, unspecified; J44.9 Chronic obstructive pulmonary disease, unspecified; G89.29 Other chronic pain; E11.40 Type 2 diabetes mellitus with diabetic neuropathy, unspecified; Z91.018 Allergy to other foods; Z79.899 Other long term (current) drug therapy; Z79.4 Long term (current) use of insulin; Z56.0 Unemployment, unspecified; Z90.49 Acquired absence of other specified parts of digestive tract; Z90.89 Acquired absence of other organs; Z98.51 Tubal ligation status; Z98.84 Bariatric surgery status; Y08.89XA Assault by other specified means, initial encounter; Y93.89 Activity, other specified; Y92.89 Other specified places as the place of occurrence of the external cause; Y99.8 Other external cause status
CPT/HCPCS: 29125; 73110; 99283

== ENCOUNTER 2018-11-19 13:38 | Emergency (ER) | payer MEDICAID ==
[~2018-11-19] VITALS: Ht 175.3 cm; Wt 100.0 kg
[2018-11-19 14:21] VITALS: BP 152/85
[2018-11-19] MEDS ORDERED: HYDR-4353 PO (16:43)
[2018-11-19] MEDS ORDERED: HYDROcodone/acetaminophen 10/325mg tab PO ONE (16:45)
== END 2018-11-19 17:01 | disposition home or self-care (01) ==
LOC: ER 13:40
DX: G89.29 Other chronic pain (principal); M25.532 Pain in left wrist; R19.7 Diarrhea, unspecified; E78.00 Pure hypercholesterolemia, unspecified; I10 Essential (primary) hypertension; E11.42 Type 2 diabetes mellitus with diabetic polyneuropathy; J44.9 Chronic obstructive pulmonary disease, unspecified; F11.23 Opioid dependence with withdrawal; Z90.49 Acquired absence of other specified parts of digestive tract; Z98.51 Tubal ligation status; Z98.890 Other specified postprocedural states; Z98.84 Bariatric surgery status; Z56.0 Unemployment, unspecified; Z79.4 Long term (current) use of insulin; Z79.899 Other long term (current) drug therapy
CPT/HCPCS: 99283

== ENCOUNTER 2018-11-23 14:53 | Emergency (ER) | payer MEDICAID ==
[~2018-11-23] VITALS: Ht 175.3 cm; Wt 90.9 kg
[2018-11-23 15:13] VITALS: BP 153/79
[2018-11-23 16:16] LABS: BASOPHILS % (AUTO) 0.3 % (0-1); EOSINOPHILS # (AUTO) 0.2 X10'3 (0-0.9); EOSINOPHILS % (AUTO) 2.4 % (0-6); HEMATOCRIT 40.2 % (35.0-45.0); HEMOGLOBIN 13.4 g/dl (12.0-16.0); LYMPHOCYTES # (AUTO) 0.8 X10'3 (1.1-4.8); LYMPHOCYTES % (AUTO) 10.3 % (21-51); MEAN CORPUSCULAR HEMOGLOBIN 28.2 PG (27.0-31.0); MEAN CORPUSCULAR HGB CONC 33.3 g/dL (33.0-36.5); MEAN CORPUSCULAR VOLUME 84.6 FL (78-98); MEAN PLATELET VOLUME 7.9 FL (7.4-10.4); MONOCYTES # (AUTO) 0.4 X10'3 (0-0.9); MONOCYTES % (AUTO) 4.7 % (2-12); NEUTROPHILS # (AUTO) 6.1 X10'3 (1.8-7.7); NEUTROPHILS % (AUTO) 82.3 % (42-75); PLATELET COUNT 189 X10'3 (140-440); RED BLOOD COUNT 4.75 X10'6 (4.20-5.60); RED CELL DISTRIBUTION WIDTH 13.7 % (11.5-14.5); WHITE BLOOD COUNT 7.4 X10'3 (4.5-11.0)
[2018-11-23 16:30] LABS: ALANINE AMINOTRANSFERASE 18 U/L (12-78); ALBUMIN 3.6 G/DL (3.4-5.0); ALKALINE PHOSPHATASE 210 IU/L (46-116); ANION GAP 11 (8-16); ASPARTATE AMINO TRANSFERASE 10 U/L (10-37); BILIRUBIN,TOTAL 0.4 MG/DL (0.1-1.0); BLOOD UREA NITROGEN 13 MG/DL (7-18); BUN/CREATININE RATIO 17.1 (6.6-38.0); CALCIUM 9.6 MG/DL (8.5-10.1); CHLORIDE 103 MMOL/L (99-107); CREATININE 0.76 MG/DL (0.40-0.90); GLUCOSE 295 MG/DL (70-104); POTASSIUM 3.5 MMOL/L (3.5-5.1); SODIUM 139 MMOL/L (135-145); TOTAL CARBON DIOXIDE 24.8 MMOL/L (24-32); TOTAL PROTEIN 7.2 G/DL (6.4-8.2); eGFR 79 ML/MIN
[2018-11-23] MEDS ORDERED: famotidine/PF 10 mg/ml inj IV ONE (17:05)
[2018-11-23] MEDS ORDERED: normal saline 1000ML IV soln IV ONE (17:05)
[2018-11-23] MEDS ORDERED: ipratropium/albuterol 3ml nebule NEB ONE (17:15)
[2018-11-23] MEDS ORDERED: methylPREDNISolone sod succ 125mg/2ml vial IV ONE (17:15)
[2018-11-23] MEDS ORDERED: HYDROcodone/acetaminophen 5mg/325mg tablet PO ONE (17:25)
[2018-11-23] MEDS ORDERED: IBUP-1984 PO (17:47)
[2018-11-23] MEDS ORDERED: LACT1CAP65 PO (17:47)
[2018-11-23 17:57] LABS: CLARITY,URINE SLIGHTLY CLOUDY (Clear); COLOR,URINE YELLOW (Yellow); GLUCOSE, URINE >=1000 mg/dl (Neg); KETONES,URINE 15 mg/dl (Neg); LEUKOCYTE ESTERASE ,URINE NEGATIVE (Neg); NITRITES, URINE NEGATIVE (Neg); OCCULT BLOOD,URINE NEGATIVE (Neg); PROTEIN,URINE TRACE mg/dl (Neg)
[2018-11-23 18:02] LABS: UA COLLECTION TYPE CLN CATCH MIDSTREAM
[2018-11-23 18:03] LABS: SQUAMOUS EPITHELIAL CELL,UR MANY /LPF (FEW)
[2018-11-23 18:04] LABS: BACTERIA,URINE FEW /HPF (Neg); RBC,URINE 0-2 /HPF (0-2); WBC,URINE 0-4 /HPF (0-4)
[2018-11-23 18:12] LABS: URINE AMPHETAMINE SCREEN NEGATIVE (Neg); URINE BARBITUATE SCREEN NEGATIVE (Neg); URINE BENZODIAZEPINES SCREEN NEGATIVE (Neg); URINE CANNABINOID SCREEN NEGATIVE (Neg); URINE COCAINE SCREEN NEGATIVE (Neg); URINE METHADONE SCREEN NEGATIVE (Neg); URINE OPIATE SCREEN POSITIVE (Neg); URINE PHENCYCLIDINE SCREEN NEGATIVE (Neg)
== END 2018-11-23 18:26 | disposition left against medical advice (07) ==
LOC: ER 14:53
DX: J06.9 Acute upper respiratory infection, unspecified (principal); E87.2 Acidosis; E11.42 Type 2 diabetes mellitus with diabetic polyneuropathy; E78.00 Pure hypercholesterolemia, unspecified; I10 Essential (primary) hypertension; J44.9 Chronic obstructive pulmonary disease, unspecified; G89.29 Other chronic pain; F17.200 Nicotine dependence, unspecified, uncomplicated; Z90.49 Acquired absence of other specified parts of digestive tract; Z98.51 Tubal ligation status; Z98.84 Bariatric surgery status; Z56.0 Unemployment, unspecified; Z79.4 Long term (current) use of insulin; Z79.899 Other long term (current) drug therapy
CPT/HCPCS: 36415; 71046; 80053; 80305; 81001; 83605; 84145; 84484; 85025; 87040; 87502; 87503; 93005; 94640; 94760; 96374; 96375; 99284; J2930; J3490; J7030

== ENCOUNTER 2018-11-25 15:25 | Emergency (ER) | payer MEDICAID ==
[~2018-11-25] VITALS: Ht 175.3 cm; Wt 90.9 kg
[~2018-11-25 15:25] MED LIST changes: +IBUP-1984 PO; -IBUP-1986 PO; -LACT1CAP26 PO; +LACT1CAP65 PO; -NICO-687 TD
[2018-11-25 17:28] VITALS: BP 150/81
--- NOTE | 2018-11-25 18:50 | NUR ---
PT LWOBS CASE DISCUSSED WITH DR FUNES NO NEED FOR FOLLOW UP AT THIS TIME.
== END 2018-11-25 18:52 | disposition left against medical advice (07) ==
LOC: ER 15:25
DX: R05 Cough (principal); I10 Essential (primary) hypertension; E78.5 Hyperlipidemia, unspecified; J44.9 Chronic obstructive pulmonary disease, unspecified; K21.9 Gastro-esophageal reflux disease without esophagitis; Z98.890 Other specified postprocedural states; Z53.21 Procedure and treatment not carried out due to patient leaving prior to being seen by health care provider

== ENCOUNTER 2023-06-27 10:32 | Emergency (ER) | payer MEDICAID ==
[~2023-06-27] VITALS: Ht 177.8 cm; Wt 104.5 kg
[~2023-06-27 10:32] MED LIST changes: +LOSA-415 PO; -LOSA25TA96 PO
[2023-06-27 10:48] VITALS: BP 176/95; PULSE 106; RESP 20; TEMP 97.9; O2SAT 96
[2023-06-27] MEDS ORDERED: ALBU18HF2 INH (13:08)
[2023-06-27] MEDS ORDERED: PRED50TA PO (13:08)
[2023-06-27] MEDS ORDERED: ONDA4TAB12 PO (13:25)
== END 2023-06-27 13:35 | disposition home or self-care (01) ==
LOC: ER 10:33
DX: B34.9 Viral infection, unspecified (principal); Z20.822 Contact with and (suspected) exposure to COVID-19; E78.00 Pure hypercholesterolemia, unspecified; I10 Essential (primary) hypertension; J45.909 Unspecified asthma, uncomplicated; G89.29 Other chronic pain; M79.7 Fibromyalgia; E11.42 Type 2 diabetes mellitus with diabetic polyneuropathy; Z72.89 Other problems related to lifestyle; Z56.0 Unemployment, unspecified; Z90.49 Acquired absence of other specified parts of digestive tract; Z98.84 Bariatric surgery status; Z98.51 Tubal ligation status; Z79.899 Other long term (current) drug therapy; Z79.4 Long term (current) use of insulin
CPT/HCPCS: 36415; 87502; 87503; 87811; 96375; 99284

== ENCOUNTER 2024-05-13 17:13 | Emergency (ER) | payer MEDICAID ==
[~2024-05-13] VITALS: Ht 180.3 cm; Wt 108.0 kg
[~2024-05-13 17:13] MED LIST changes: +ALBU18HF2 INH; +ONDA-243 PO; +PRED50TA PO
[2024-05-13] MEDS: ketorolac trometh 15mg/ml vial 15 MG/ML ML IM ONE (20:11)
[2024-05-13 21:38] VITALS: BP 143/78; PULSE 89; RESP 17; TEMP 98.3; O2SAT 99
== END 2024-05-13 21:41 | disposition home or self-care (01) ==
LOC: ER 17:14
DX: M25.572 Pain in left ankle and joints of left foot (principal); M25.571 Pain in right ankle and joints of right foot; M79.672 Pain in left foot; M79.671 Pain in right foot; E78.00 Pure hypercholesterolemia, unspecified; I10 Essential (primary) hypertension; J45.909 Unspecified asthma, uncomplicated; J44.9 Chronic obstructive pulmonary disease, unspecified; E11.42 Type 2 diabetes mellitus with diabetic polyneuropathy; G89.29 Other chronic pain; M54.9 Dorsalgia, unspecified; M79.7 Fibromyalgia; F41.9 Anxiety disorder, unspecified; F32.A Depression, unspecified; Z56.0 Unemployment, unspecified; Z72.89 Other problems related to lifestyle; Z98.51 Tubal ligation status; Z90.49 Acquired absence of other specified parts of digestive tract; Z98.890 Other specified postprocedural states; Z79.899 Other long term (current) drug therapy; Z79.52 Long term (current) use of systemic steroids; Z79.4 Long term (current) use of insulin; W18.39XA Other fall on same level, initial encounter; Y93.89 Activity, other specified; Y92.89 Other specified places as the place of occurrence of the external cause; Y99.8 Other external cause status
CPT/HCPCS: 73610; 73630; 96372; 99284; J1885

== ENCOUNTER 2024-06-27 11:27 | Emergency (ER) | payer MEDICAID ==
[~2024-06-27] VITALS: Ht 180.3 cm; Wt 104.5 kg
[~2024-06-27 11:27] MED LIST changes: +GABA-1405 PO; -GABA600T13 PO
[2024-06-27 12:06] LABS: BASOPHILS % (AUTO) 0.4 % (0-1); EOSINOPHILS # (AUTO) 0.1 X10'3 (0-0.9); EOSINOPHILS % (AUTO) 1.6 % (0-6); HEMATOCRIT 39.8 % (35.0-45.0); HEMOGLOBIN 13.9 g/dl (12.0-16.0); LYMPHOCYTES % (AUTO) 14.7 % (21-51); MEAN CORPUSCULAR HEMOGLOBIN 30.6 PG (27.0-31.0); MEAN CORPUSCULAR HGB CONC 34.8 g/dL (33.0-36.5); MEAN CORPUSCULAR VOLUME 87.9 FL (78-98); MEAN PLATELET VOLUME 8.7 FL (7.4-10.4); MONOCYTES # (AUTO) 0.3 X10'3 (0-0.9); MONOCYTES % (AUTO) 4.1 % (2-12); NEUTROPHILS # (AUTO) 5.6 X10'3 (1.8-7.7); NEUTROPHILS % (AUTO) 79.2 % (42-75); PLATELET COUNT 192 X10'3 (140-440); RED BLOOD COUNT 4.53 X10'6 (4.20-5.60); RED CELL DISTRIBUTION WIDTH 13.6 % (11.5-14.5); WHITE BLOOD COUNT 7.1 X10'3 (4.5-11.0)
[2024-06-27 12:13] LABS: ALANINE AMINOTRANSFERASE 17 U/L (12-78); ALBUMIN 3.6 G/DL (3.4-5.0); ALBUMIN/GLOBULIN RATIO 1.1 (1.1-1.5); ALKALINE PHOSPHATASE 173 IU/L (46-116); ANION GAP 8 (8-16); ASPARTATE AMINO TRANSFERASE 9 U/L (10-37); BILIRUBIN,TOTAL 0.5 MG/DL (0.1-1.0); BLOOD UREA NITROGEN 17 MG/DL (7-18); CALCIUM 9.3 MG/DL (8.5-10.1); CHLORIDE 103 MMOL/L (99-107); CREATININE 0.74 MG/DL (0.40-0.90); GLUCOSE 311 MG/DL (70-104); POTASSIUM 4.1 MMOL/L (3.5-5.1); SODIUM 138 MMOL/L (135-145); TOTAL PROTEIN 6.8 G/DL (6.4-8.2); eCRCL 90 ML/MIN; eGFR 80 ML/MIN
[2024-06-27] MEDS: ketorolac trometh 15mg/ml vial 15 MG/ML ML IM ONE (12:23)
[2024-06-27 12:29] LABS: PRO BRAIN NATRIURETIC PEPTIDE 95 PG/ML (0-125)
[2024-06-27 13:12] VITALS: BP 154/92; PULSE 84; RESP 16; TEMP 97.2; O2SAT 100
== END 2024-06-27 13:15 | disposition home or self-care (01) ==
LOC: ER 11:28
DX: G89.29 Other chronic pain (principal); R07.89 Other chest pain; E11.42 Type 2 diabetes mellitus with diabetic polyneuropathy; E11.36 Type 2 diabetes mellitus with diabetic cataract; I10 Essential (primary) hypertension; E78.00 Pure hypercholesterolemia, unspecified; F32.A Depression, unspecified; F41.9 Anxiety disorder, unspecified; Z91.018 Allergy to other foods; Z79.4 Long term (current) use of insulin; Z79.52 Long term (current) use of systemic steroids; Z79.899 Other long term (current) drug therapy; Z90.49 Acquired absence of other specified parts of digestive tract; Z90.89 Acquired absence of other organs; Z98.51 Tubal ligation status; Z98.84 Bariatric surgery status; W19.XXXA Unspecified fall, initial encounter; Y93.89 Activity, other specified; Y92.89 Other specified places as the place of occurrence of the external cause; Y99.8 Other external cause status
CPT/HCPCS: 36415; 71045; 80053; 83880; 84484; 85025; 93005; 96372; 99285; J1885

== ENCOUNTER 2024-08-14 12:09 | Inpatient (IN) | payer MEDICAID ==
[~2024-08-14] VITALS: Ht 172.7 cm; Wt 90.9 kg
[2024-08-14 12:48] LABS: BASOPHILS % (AUTO) 0.3 % (0-1); EOSINOPHILS # (AUTO) 0.1 X10'3 (0-0.9); EOSINOPHILS % (AUTO) 1.1 % (0-6); HEMATOCRIT 45.9 % (35.0-45.0); HEMOGLOBIN 15.8 g/dl (12.0-16.0); LYMPHOCYTES # (AUTO) 1.4 X10'3 (1.1-4.8); LYMPHOCYTES % (AUTO) 13.1 % (21-51); MEAN CORPUSCULAR HGB CONC 34.5 g/dL (33.0-36.5); MEAN PLATELET VOLUME 8.5 FL (7.4-10.4); MONOCYTES # (AUTO) 0.5 X10'3 (0-0.9); MONOCYTES % (AUTO) 4.6 % (2-12); NEUTROPHILS # (AUTO) 8.4 X10'3 (1.8-7.7); NEUTROPHILS % (AUTO) 80.9 % (42-75); PLATELET COUNT 285 X10'3 (140-440); RED CELL DISTRIBUTION WIDTH 14.1 % (11.5-14.5); WHITE BLOOD COUNT 10.4 X10'3 (4.5-11.0)
[2024-08-14 13:08] LABS: ALANINE AMINOTRANSFERASE 15 U/L (12-78); ALBUMIN/GLOBULIN RATIO 1.1 (1.1-1.5); ALKALINE PHOSPHATASE 196 IU/L (46-116); ANION GAP 12 (8-16); ASPARTATE AMINO TRANSFERASE 5 U/L (10-37); BILIRUBIN,TOTAL 0.8 MG/DL (0.1-1.0); BLOOD UREA NITROGEN 28 MG/DL (7-18); BUN/CREATININE RATIO 27.5 (10.0-20.0); CALCIUM 9.7 MG/DL (8.5-10.1); CHLORIDE 105 MMOL/L (99-107); CREATININE 1.02 MG/DL (0.40-0.90); GLUCOSE 294 MG/DL (70-104); LIPASE 37 U/L (16-77); POTASSIUM 3.8 MMOL/L (3.5-5.1); SODIUM 139 MMOL/L (135-145); TOTAL CARBON DIOXIDE 22.3 MMOL/L (24-32); TOTAL PROTEIN 7.8 G/DL (6.4-8.2); eCRCL 59 ML/MIN; eGFR 55 ML/MIN
[2024-08-14] MEDS: normal saline 1000ml 1,000 ML IV STA (20:10)
[2024-08-14 20:20] LABS: ETHANOL < 10 MG/DL (<10)
[2024-08-14 21:51] LABS: BILIRUBIN,URINE MODERATE (Neg); CLARITY,URINE CLEAR (Clear); COLOR,URINE YELLOW (Yellow); GLUCOSE, URINE 100 mg/dl (Neg); KETONES,URINE 15 mg/dl (Neg); LEUKOCYTE ESTERASE ,URINE NEGATIVE (Neg); NITRITES, URINE NEGATIVE (Neg); OCCULT BLOOD,URINE NEGATIVE (Neg); PH,URINE 5.5 (4.8-8.0); PROTEIN,URINE 100 mg/dl (Neg); URINE HCG NEGATIVE (NEG)
[2024-08-14 21:56] LABS: UA COLLECTION TYPE CLN CATCH MIDSTREAM
[2024-08-14 21:59] LABS: BACTERIA,URINE 3+ /HPF (Neg); MUCUS STRANDS MODERATE /LPF (Neg); RBC,URINE NONE SEEN /HPF (0-2); SQUAMOUS EPITHELIAL CELL,UR MODERATE /LPF (FEW); WBC,URINE 0-4 /HPF (0-4)
[2024-08-14 22:14] LABS: URINE AMPHETAMINE SCREEN NEGATIVE (Neg); URINE BARBITUATE SCREEN NEGATIVE (Neg); URINE BENZODIAZEPINES SCREEN NEGATIVE (Neg); URINE CANNABINOID SCREEN NEGATIVE (Neg); URINE COCAINE SCREEN NEGATIVE (Neg); URINE METHADONE SCREEN NEGATIVE (Neg); URINE OPIATE SCREEN POSITIVE (Neg); URINE PHENCYCLIDINE SCREEN NEGATIVE (Neg)
[2024-08-15] MEDS ORDERED: magnesium sulf-water 2g/50mL 50 ML IV PRN (01:50)
[2024-08-15] MEDS ORDERED: normal saline 1000ml 1,000 ML IV SCH (01:50)
[2024-08-15] MEDS ORDERED: potassium Cl 20 mEq SR tablet PO PRN ×2 (01:50)
[2024-08-15] MEDS ORDERED: acetaminophen 325mg tablet PO PRN (01:50)
[2024-08-15] MEDS ORDERED: magnesium sulf-water 4G/100mL 100 ML IV PRN (01:50)
[2024-08-15] MEDS ORDERED: mag hydrox/Alum hydrox/simeth 30ml oral suspension PO PRN (01:50)
[2024-08-15 02:37] LABS: BASOPHILS % (AUTO) 0.4 % (0-1); EOSINOPHILS # (AUTO) 0.2 X10'3 (0-0.9); HEMATOCRIT 39.3 % (35.0-45.0); HEMOGLOBIN 13.6 g/dl (12.0-16.0); LYMPHOCYTES # (AUTO) 1.7 X10'3 (1.1-4.8); MEAN CORPUSCULAR HEMOGLOBIN 30.9 PG (27.0-31.0); MEAN CORPUSCULAR HGB CONC 34.7 g/dL (33.0-36.5); MEAN CORPUSCULAR VOLUME 89.1 FL (78-98); MEAN PLATELET VOLUME 8.4 FL (7.4-10.4); MONOCYTES # (AUTO) 0.5 X10'3 (0-0.9); MONOCYTES % (AUTO) 5.1 % (2-12); NEUTROPHILS % (AUTO) 74.5 % (42-75); PLATELET COUNT 201 X10'3 (140-440); RED BLOOD COUNT 4.41 X10'6 (4.20-5.60); WHITE BLOOD COUNT 9.4 X10'3 (4.5-11.0)
[2024-08-15] MEDS: ringers solution, lacted 1,000 ML IV SCH (02:40)
[2024-08-15 02:49] LABS: APTT 25 SECONDS (22-32); INR 1.1 INR; PROTHROMBIN TIME 11.3 SECONDS (9.0-12.0)
[2024-08-15 03:04] LABS: HEMOGLOBIN A1C 9.9 % (4.5-6.2)
[2024-08-15 03:08] LABS: ALANINE AMINOTRANSFERASE 13 U/L (12-78); ALBUMIN 3.6 G/DL (3.4-5.0); ALBUMIN/GLOBULIN RATIO 1.1 (1.1-1.5); ALKALINE PHOSPHATASE 166 IU/L (46-116); ANION GAP 12 (8-16); ASPARTATE AMINO TRANSFERASE 8 U/L (10-37); BILIRUBIN,TOTAL 0.5 MG/DL (0.1-1.0); BLOOD UREA NITROGEN 35 MG/DL (7-18); BUN/CREATININE RATIO 27.8 (10.0-20.0); CALCIUM 9.9 MG/DL (8.5-10.1); CHLORIDE 105 MMOL/L (99-107); CHOL/HDL RATIO 4.4 (0.00-4.99); CHOLESTEROL 141 MG/DL (0-200); CREATININE 1.26 MG/DL (0.40-0.90); FREE T4 (FREE THYROXINE) 0.87 NG/DL (0.73-1.40); GLUCOSE 223 MG/DL (70-104); HDL CHOLESTEROL 32 MG/DL (35-60); LDL CHOLESTEROL 75 MG/DL (50-100); MAGNESIUM 1.6 MG/DL (1.5-2.4); PHOSPHORUS 3.3 MG/DL (2.3-4.5); POTASSIUM 3.5 MMOL/L (3.5-5.1); SODIUM 142 MMOL/L (135-145); THYROID STIMULATING HORMONE 1.01 ulU/ml (0.34-4.50); TOTAL CARBON DIOXIDE 24.7 MMOL/L (24-32); TOTAL PROTEIN 6.8 G/DL (6.4-8.2); TRIGLYCERIDES 178 MG/DL (20-135); eCRCL 48 ML/MIN; eGFR 43 ML/MIN
[2024-08-15] MEDS ORDERED: glucagon, human recombinant 1mg kit SUBCUT PRN ×2 (07:35→07:50)
[2024-08-15] MEDS ORDERED: dextrose 50%-water 50ml dispensing syringe IV PRN ×4 (07:35→07:50)
[2024-08-15] MEDS ORDERED: DEXTROSE 15 GM of carb/4 tabs (each vial/BOTTLE has 4 tablets) PO PRN ×4 (07:35→07:50)
[2024-08-15] MEDS: CefTRIAXone 2gm/D5W 50ml BAG 50 ML IV SCH (08:00)
[2024-08-15] MEDS: K and/or MAG REPLACEMENT MC SCH (08:00)
[2024-08-15] MEDS: docusate sod 100mg capsule PO SCH (08:00)
[2024-08-15] MEDS: aspirin 81mg, enteric-coated 1 TAB TABLET.DR PO SCH (08:00)
[2024-08-15] MEDS ORDERED: INSULIN LISPRO 100 UNIT/ML INSULN.PEN MULTI-DOSE SQ SCH (12:00)
[2024-08-15] MEDS: INSULIN LISPRO 100 UNIT/ML INSULN.PEN MULTI-DOSE SQ SCH (12:05)
[2024-08-15] MEDS: normal saline 1000ml 1,000 ML IV SCH (14:00)
[2024-08-15] MEDS: LORazepam 2 mg/ml vial IV PRN (14:55)
[2024-08-15] MEDS ORDERED: LORazepam 2 mg/ml vial IV PRN (15:05)
[2024-08-15 19:45] VITALS: BP 152/70; PULSE 87; RESP 18; TEMP 98.4; O2SAT 96
[2024-08-15 20:20] VITALS: RESP 18
[2024-08-15] MEDS: enoxaparin 40mg/0.4ml syringe SQ SCH (20:54)
[2024-08-15] MEDS ORDERED: insulin glargine (Lantus) pen - multi-dose SQ SCH (21:00)
[2024-08-15 22:00] VITALS: BP 123/48; PULSE 77; RESP 16; TEMP 98.2; O2SAT 96
[2024-08-15] MEDS: insulin glargine (Lantus) pen - multi-dose SQ SCH (22:20)
[2024-08-16] MEDS: VANCOMYCIN/H2O 1.75g/350mL PB 350 ML IV ONE (05:54)
[2024-08-16 06:00] VITALS: BP 133/75; PULSE 61; RESP 16; TEMP 96; O2SAT 94
[2024-08-16 06:21] LABS: APTT 26 SECONDS (22-32); INR 1.1 INR; PROTHROMBIN TIME 11.1 SECONDS (9.0-12.0)
[2024-08-16 06:45] LABS: ALANINE AMINOTRANSFERASE 15 U/L (12-78); ALBUMIN 3.6 G/DL (3.4-5.0); ALBUMIN/GLOBULIN RATIO 1.1 (1.1-1.5); ALKALINE PHOSPHATASE 164 IU/L (46-116); ANION GAP 10 (8-16); ASPARTATE AMINO TRANSFERASE 11 U/L (10-37); BILIRUBIN,TOTAL 0.5 MG/DL (0.1-1.0); BLOOD UREA NITROGEN 18 MG/DL (7-18); BUN/CREATININE RATIO 28.6 (10.0-20.0); CALCIUM 10.1 MG/DL (8.5-10.1); CHLORIDE 103 MMOL/L (99-107); CREATININE 0.63 MG/DL (0.40-0.90); GLUCOSE 247 MG/DL (70-104); MAGNESIUM 1.6 MG/DL (1.5-2.4); PHOSPHORUS 3.7 MG/DL (2.3-4.5); SODIUM 140 MMOL/L (135-145); TOTAL CARBON DIOXIDE 26.6 MMOL/L (24-32); eCRCL 96 ML/MIN; eGFR > 90 ML/MIN
[2024-08-16 06:56] LABS: POTASSIUM 2.8 MMOL/L (3.5-5.1)
[2024-08-16 07:01] LABS: BASOPHILS % (AUTO) 0.4 % (0-1); EOSINOPHILS # (AUTO) 0.2 X10'3 (0-0.9); EOSINOPHILS % (AUTO) 2.3 % (0-6); HEMATOCRIT 40.1 % (35.0-45.0); HEMOGLOBIN 14.4 g/dl (12.0-16.0); LYMPHOCYTES # (AUTO) 1.5 X10'3 (1.1-4.8); LYMPHOCYTES % (AUTO) 18.5 % (21-51); MEAN CORPUSCULAR HEMOGLOBIN 32.1 PG (27.0-31.0); MEAN CORPUSCULAR VOLUME 89.1 FL (78-98); MEAN PLATELET VOLUME 8.9 FL (7.4-10.4); MONOCYTES # (AUTO) 0.5 X10'3 (0-0.9); MONOCYTES % (AUTO) 5.8 % (2-12); NEUTROPHILS # (AUTO) 5.9 X10'3 (1.8-7.7); PLATELET COUNT 200 X10'3 (140-440); RED BLOOD COUNT 4.49 X10'6 (4.20-5.60); RED CELL DISTRIBUTION WIDTH 13.8 % (11.5-14.5); WHITE BLOOD COUNT 8.1 X10'3 (4.5-11.0)
[2024-08-16 10:00] VITALS: BP 148/77; PULSE 79; RESP 20; TEMP 96.8; O2SAT 92
[2024-08-16] MEDS: atorvastatin 20mg tablet PO SCH (10:57)
[2024-08-16] MEDS: INSULIN LISPRO 100 UNIT/ML INSULN.PEN MULTI-DOSE SQ SCH (12:48)
[2024-08-16] MEDS: acetaminophen 325mg tablet PO PRN (13:00)
[2024-08-16] MEDS: PERFLUTREN PROTEIN-A MICROSPHR (Optison) 0.22 MG/ML 3ML VIAL IV ONE (15:00)
[2024-08-16] MEDS: vancomycin/NS 1 GM ADD-VANTAGE 250 ML IV SCH (15:06)
[2024-08-16] MEDS ORDERED: iohexol 350MG/ML 100ml bottle IV ONE (17:16)
[2024-08-16] MEDS: potassium Cl 40MEQ/1/2NS 520ml 520 ML IV PRN (19:10)
[2024-08-16 19:44] LABS: D-DIMER 0.23 MG/L FEU (0-0.50)
[2024-08-16 19:49] LABS: CHOL/HDL RATIO 4.4 (0.00-4.99); CHOLESTEROL 158 MG/DL (0-200); HDL CHOLESTEROL 36 MG/DL (35-60); LDL CHOLESTEROL 83 MG/DL (50-100); POTASSIUM 3.6 MMOL/L (3.5-5.1); TRIGLYCERIDES 193 MG/DL (20-135)
[2024-08-16 20:30] VITALS: PULSE 75; TEMP 96.8
[2024-08-16] MEDS: insulin glargine (Lantus) pen - multi-dose SQ SCH (21:20)
[2024-08-16 21:29] VITALS: BP 137/74; PULSE 81; RESP 20; TEMP 97.7; O2SAT 96
[2024-08-17 00:33] VITALS: BP 146/76; PULSE 79; RESP 22; TEMP 98.3; O2SAT 98
[2024-08-17 04:10] VITALS: BP 159/85; PULSE 78; RESP 20; TEMP 98.3; O2SAT 92
[2024-08-17] MEDS: VANCOMYCIN LEVEL IV ONE (05:33)
[2024-08-17 06:03] LABS: BASOPHILS # (AUTO) 0.1 X10'3 (0-0.2); BASOPHILS % (AUTO) 0.8 % (0-1); EOSINOPHILS # (AUTO) 0.2 X10'3 (0-0.9); EOSINOPHILS % (AUTO) 3.1 % (0-6); HEMATOCRIT 37.4 % (35.0-45.0); HEMOGLOBIN 13.1 g/dl (12.0-16.0); LYMPHOCYTES # (AUTO) 1.6 X10'3 (1.1-4.8); LYMPHOCYTES % (AUTO) 24.8 % (21-51); MEAN CORPUSCULAR HEMOGLOBIN 31.1 PG (27.0-31.0); MEAN CORPUSCULAR VOLUME 88.9 FL (78-98); MEAN PLATELET VOLUME 8.7 FL (7.4-10.4); MONOCYTES # (AUTO) 0.4 X10'3 (0-0.9); NEUTROPHILS # (AUTO) 4.1 X10'3 (1.8-7.7); NEUTROPHILS % (AUTO) 65.3 % (42-75); PLATELET COUNT 176 X10'3 (140-440); RED BLOOD COUNT 4.21 X10'6 (4.20-5.60); RED CELL DISTRIBUTION WIDTH 13.7 % (11.5-14.5); WHITE BLOOD COUNT 6.3 X10'3 (4.5-11.0)
[2024-08-17 06:12] LABS: APTT 26 SECONDS (22-32); INR 1.1 INR; PROTHROMBIN TIME 11.1 SECONDS (9.0-12.0)
[2024-08-17 06:15] LABS: ALANINE AMINOTRANSFERASE 16 U/L (12-78); ALBUMIN 3.3 G/DL (3.4-5.0); ALBUMIN/GLOBULIN RATIO 1.1 (1.1-1.5); ALKALINE PHOSPHATASE 149 IU/L (46-116); ANION GAP 7 (8-16); ASPARTATE AMINO TRANSFERASE 11 U/L (10-37); BILIRUBIN,TOTAL 0.4 MG/DL (0.1-1.0); BLOOD UREA NITROGEN 14 MG/DL (7-18); BUN/CREATININE RATIO 24.1 (10.0-20.0); CALCIUM 9.8 MG/DL (8.5-10.1); CHLORIDE 107 MMOL/L (99-107); CREATININE 0.58 MG/DL (0.40-0.90); GLUCOSE 139 MG/DL (70-104); MAGNESIUM 1.4 MG/DL (1.5-2.4); SODIUM 143 MMOL/L (135-145); TOTAL PROTEIN 6.4 G/DL (6.4-8.2); VANCOMYCIN,TROUGH 15.8 ug/mL (10.0-20.0); eCRCL 104 ML/MIN; eGFR > 90 ML/MIN
[2024-08-17 12:00] VITALS: BP 159/70; PULSE 57; RESP 16; TEMP 97.8; O2SAT 100
[2024-08-17] MEDS: nicotine 21mg patch - 24 hr TD SCH (15:38)
[2024-08-17 16:00] VITALS: BP 154/80; PULSE 75; RESP 18; TEMP 97.8; O2SAT 95
[2024-08-17 18:30] VITALS: BP 194/82; PULSE 73; RESP 18; TEMP 98.2; O2SAT 94
[2024-08-17] MEDS: magnesium Cl slow-release 64mg tablet PO PRN (21:04)
[2024-08-17 22:00] VITALS: BP 186/88; PULSE 76; RESP 20; TEMP 98.3; O2SAT 98
[2024-08-18 02:00] VITALS: BP 180/92; PULSE 77; RESP 19; TEMP 97.6; O2SAT 96
[2024-08-18 06:00] VITALS: BP 153/93; PULSE 81; RESP 20; TEMP 97.9; O2SAT 98
[2024-08-18 08:10] VITALS: BP 177/96
[2024-08-18 08:15] LABS: INR 1.1 INR
[2024-08-18 08:18] LABS: BASOPHILS % (AUTO) 0.7 % (0-1); EOSINOPHILS # (AUTO) 0.2 X10'3 (0-0.9); HEMATOCRIT 39.4 % (35.0-45.0); HEMOGLOBIN 13.8 g/dl (12.0-16.0); LYMPHOCYTES # (AUTO) 1.6 X10'3 (1.1-4.8); MEAN CORPUSCULAR HEMOGLOBIN 30.8 PG (27.0-31.0); MEAN CORPUSCULAR VOLUME 87.8 FL (78-98); MEAN PLATELET VOLUME 8.8 FL (7.4-10.4); MONOCYTES # (AUTO) 0.3 X10'3 (0-0.9); NEUTROPHILS # (AUTO) 3.6 X10'3 (1.8-7.7); NEUTROPHILS % (AUTO) 62.3 % (42-75); PLATELET COUNT 176 X10'3 (140-440); RED BLOOD COUNT 4.49 X10'6 (4.20-5.60); RED CELL DISTRIBUTION WIDTH 13.8 % (11.5-14.5); WHITE BLOOD COUNT 5.8 X10'3 (4.5-11.0)
[2024-08-18] MEDS: amLODIPine 5mg tablet PO SCH (08:32)
[2024-08-18 09:13] LABS: ALANINE AMINOTRANSFERASE 17 U/L (12-78); ALBUMIN 3.4 G/DL (3.4-5.0); ALKALINE PHOSPHATASE 146 IU/L (46-116); ANION GAP 9 (8-16); ASPARTATE AMINO TRANSFERASE 11 U/L (10-37); BILIRUBIN,TOTAL 0.6 MG/DL (0.1-1.0); BLOOD UREA NITROGEN 9 MG/DL (7-18); CALCIUM 9.6 MG/DL (8.5-10.1); CHLORIDE 103 MMOL/L (99-107); GLUCOSE 217 MG/DL (70-104); MAGNESIUM 1.3 MG/DL (1.5-2.4); SODIUM 139 MMOL/L (135-145); TOTAL CARBON DIOXIDE 27.5 MMOL/L (24-32); TOTAL PROTEIN 6.9 G/DL (6.4-8.2); eCRCL 101 ML/MIN; eGFR > 90 ML/MIN
[2024-08-18] MEDS ORDERED: potassium Cl 40MEQ/1/2NS 520ml 520 ML IV PRN (09:20)
[2024-08-18] MEDS ORDERED: potassium Cl 20 mEq SR tablet PO PRN (09:20)
[2024-08-18] MEDS ORDERED: magnesium sulf-water 2g/50mL 50 ML IV PRN (09:20)
[2024-08-18] MEDS ORDERED: magnesium sulf-water 4G/100mL 100 ML IV PRN (09:20)
[2024-08-18] MEDS: magnesium Cl slow-release 64mg tablet PO PRN (09:44)
[2024-08-18] MEDS: potassium Cl 20 mEq SR tablet PO PRN (09:45)
[2024-08-18 10:00] VITALS: BP 144/76; PULSE 97; RESP 18; TEMP 97.3; O2SAT 97
[2024-08-18] MEDS: magnesium hydroxide 30ml (MOM) UD suspension PO PRN (12:57)
[2024-08-18] MEDS: K and/or MAG REPLACEMENT MC SCH (19:24)
[2024-08-18 19:44] VITALS: BP 159/78; PULSE 84; RESP 18; TEMP 97.8; O2SAT 97
[2024-08-18 22:00] VITALS: BP 158/75; PULSE 74; RESP 18; TEMP 98.8; O2SAT 98
[2024-08-19 06:00] VITALS: BP 172/92; PULSE 94; RESP 20; TEMP 98.7; O2SAT 97
[2024-08-19 06:39] LABS: BASOPHILS # (AUTO) 0.1 X10'3 (0-0.2); EOSINOPHILS # (AUTO) 0.3 X10'3 (0-0.9); EOSINOPHILS % (AUTO) 4.5 % (0-6); HEMATOCRIT 39.7 % (35.0-45.0); HEMOGLOBIN 13.7 g/dl (12.0-16.0); LYMPHOCYTES # (AUTO) 1.8 X10'3 (1.1-4.8); LYMPHOCYTES % (AUTO) 30.3 % (21-51); MEAN CORPUSCULAR HEMOGLOBIN 30.9 PG (27.0-31.0); MEAN CORPUSCULAR HGB CONC 34.6 g/dL (33.0-36.5); MEAN CORPUSCULAR VOLUME 89.3 FL (78-98); MEAN PLATELET VOLUME 8.6 FL (7.4-10.4); MONOCYTES # (AUTO) 0.4 X10'3 (0-0.9); MONOCYTES % (AUTO) 6.4 % (2-12); NEUTROPHILS # (AUTO) 3.4 X10'3 (1.8-7.7); NEUTROPHILS % (AUTO) 57.8 % (42-75); PLATELET COUNT 180 X10'3 (140-440); RED BLOOD COUNT 4.45 X10'6 (4.20-5.60); RED CELL DISTRIBUTION WIDTH 13.9 % (11.5-14.5); WHITE BLOOD COUNT 5.8 X10'3 (4.5-11.0)
[2024-08-19 06:52] LABS: PROTHROMBIN TIME 10.9 SECONDS (9.0-12.0)
[2024-08-19 07:00] LABS: ALANINE AMINOTRANSFERASE 20 U/L (12-78); ALBUMIN 3.4 G/DL (3.4-5.0); ALBUMIN/GLOBULIN RATIO 1.1 (1.1-1.5); ALKALINE PHOSPHATASE 147 IU/L (46-116); ANION GAP 10 (8-16); ASPARTATE AMINO TRANSFERASE 12 U/L (10-37); BILIRUBIN,TOTAL 0.5 MG/DL (0.1-1.0); BLOOD UREA NITROGEN 14 MG/DL (7-18); BUN/CREATININE RATIO 21.2 (10.0-20.0); CALCIUM 10.2 MG/DL (8.5-10.1); CHLORIDE 105 MMOL/L (99-107); CREATININE 0.66 MG/DL (0.40-0.90); GLUCOSE 241 MG/DL (70-104); MAGNESIUM 1.8 MG/DL (1.5-2.4); PHOSPHORUS 3.1 MG/DL (2.3-4.5); POTASSIUM 3.9 MMOL/L (3.5-5.1); SODIUM 142 MMOL/L (135-145); TOTAL CARBON DIOXIDE 26.9 MMOL/L (24-32); TOTAL PROTEIN 6.5 G/DL (6.4-8.2); eCRCL 91 ML/MIN; eGFR > 90 ML/MIN
[2024-08-19] MEDS ORDERED: hydrALAZINE 20mg/ml inj. IV PRN (09:45)
[2024-08-19 10:00] VITALS: BP 141/75; PULSE 77; RESP 16; TEMP 97.9; O2SAT 97
[2024-08-19] MEDS: hydrALAZINE 20mg/ml inj. IV ONE (10:20)
[2024-08-19] MEDS: INSULIN LISPRO 100 UNIT/ML INSULN.PEN MULTI-DOSE SQ SCH (12:50)
[2024-08-19] MEDS: losartan 50mg tablet PO SCH (12:58)
[2024-08-19 18:30] VITALS: BP 126/70; PULSE 74; RESP 16; TEMP 98.9; O2SAT 100
[2024-08-19] MEDS: PARoxetine 20mg tablet PO SCH (21:33)
[2024-08-19] MEDS: insulin glargine (Lantus) pen - multi-dose SQ SCH (21:37)
[2024-08-19 22:00] VITALS: BP 163/79; PULSE 88; RESP 20; TEMP 98.7; O2SAT 92
[2024-08-20] MEDS: ondansetron/PF 4mg/2ml inj IV PRN (04:43)
[2024-08-20 06:00] VITALS: BP 137/76; PULSE 80; RESP 18; TEMP 97.7; O2SAT 92
[2024-08-20 08:00] VITALS: RESP 15; O2SAT 95
[2024-08-20 08:51] VITALS: BP_SYST 118; PULSE 106
[2024-08-20 10:16] LABS: BASOPHILS % (AUTO) 0.8 % (0-1); EOSINOPHILS # (AUTO) 0.3 X10'3 (0-0.9); EOSINOPHILS % (AUTO) 4.6 % (0-6); HEMATOCRIT 37.7 % (35.0-45.0); HEMOGLOBIN 13.1 g/dl (12.0-16.0); LYMPHOCYTES # (AUTO) 1.1 X10'3 (1.1-4.8); LYMPHOCYTES % (AUTO) 17.5 % (21-51); MEAN CORPUSCULAR HEMOGLOBIN 30.9 PG (27.0-31.0); MEAN CORPUSCULAR HGB CONC 34.8 g/dL (33.0-36.5); MEAN CORPUSCULAR VOLUME 88.7 FL (78-98); MEAN PLATELET VOLUME 9.1 FL (7.4-10.4); MONOCYTES # (AUTO) 0.3 X10'3 (0-0.9); MONOCYTES % (AUTO) 5.4 % (2-12); NEUTROPHILS # (AUTO) 4.4 X10'3 (1.8-7.7); NEUTROPHILS % (AUTO) 71.7 % (42-75); PLATELET COUNT 193 X10'3 (140-440); RED BLOOD COUNT 4.26 X10'6 (4.20-5.60); RED CELL DISTRIBUTION WIDTH 13.8 % (11.5-14.5); WHITE BLOOD COUNT 6.1 X10'3 (4.5-11.0)
[2024-08-20 10:36] LABS: ALANINE AMINOTRANSFERASE 21 U/L (12-78); ALBUMIN 3.2 G/DL (3.4-5.0); ALKALINE PHOSPHATASE 129 IU/L (46-116); ANION GAP 5 (8-16); ASPARTATE AMINO TRANSFERASE 15 U/L (10-37); BLOOD UREA NITROGEN 17 MG/DL (7-18); BUN/CREATININE RATIO 21.3 (10.0-20.0); CALCIUM 9.3 MG/DL (8.5-10.1); CHLORIDE 105 MMOL/L (99-107); GLUCOSE 393 MG/DL (70-104); POTASSIUM 4.3 MMOL/L (3.5-5.1); SODIUM 136 MMOL/L (135-145); TOTAL CARBON DIOXIDE 25.6 MMOL/L (24-32); TOTAL PROTEIN 6.4 G/DL (6.4-8.2); eCRCL 75 ML/MIN; eGFR 73 ML/MIN
[2024-08-20 11:39] LABS: BILIRUBIN,TOTAL 0.3 MG/DL (0.1-1.0)
[2024-08-20] MEDS ORDERED: insulin glargine (Lantus) pen - multi-dose SQ SCH (21:00)
== END 2024-08-20 15:17 | disposition left against medical advice (07) | DRG 720 ==
LOC: ER 12:10 → ED HOLD 08-15 01:59 → ORTHO 4S 08-15 19:59
PROVIDERS: ADMIT Internal Medicine Critical Care Medicine; ATTEND Family Medicine
PROC: B3251ZZ Computerized Tomography (CT Scan) of Bilateral Common Carotid Arteries using Low Osmolar Contrast (ICD-10-PCS; 2024-08-16)
PROC: B32G1ZZ Computerized Tomography (CT Scan) of Bilateral Vertebral Arteries using Low Osmolar Contrast (ICD-10-PCS; 2024-08-16)
PROC: B32R1ZZ Computerized Tomography (CT Scan) of Intracranial Arteries using Low Osmolar Contrast (ICD-10-PCS; 2024-08-16)
PROC: B3281ZZ Computerized Tomography (CT Scan) of Bilateral Internal Carotid Arteries using Low Osmolar Contrast (ICD-10-PCS; 2024-08-16)
PROC: 4A00X4Z Measurement of Central Nervous Electrical Activity, External Approach (ICD-10-PCS; principal; 2024-08-17)
DX: A41.9 Sepsis, unspecified organism (principal); J15.9 Unspecified bacterial pneumonia; E11.42 Type 2 diabetes mellitus with diabetic polyneuropathy; E78.00 Pure hypercholesterolemia, unspecified; I10 Essential (primary) hypertension; G89.29 Other chronic pain; Z20.822 Contact with and (suspected) exposure to COVID-19; J44.89 Other specified chronic obstructive pulmonary disease; M79.7 Fibromyalgia; Z53.21 Procedure and treatment not carried out due to patient leaving prior to being seen by health care provider; M54.9 Dorsalgia, unspecified; F32.A Depression, unspecified; F41.9 Anxiety disorder, unspecified; Z79.4 Long term (current) use of insulin; Z88.8 Allergy status to other drugs, medicaments and biological substances; Z79.899 Other long term (current) drug therapy; Z98.84 Bariatric surgery status; Z90.49 Acquired absence of other specified parts of digestive tract; Z98.51 Tubal ligation status
CPT/HCPCS: 36415; 70450; 70496; 70498; 70551; 71045; 74176; 76536; 76705; 80053; 80061; 80202; 80305; 80320; 81001; 81025; 82948; 83036; 83605; 83690; 83735; 84100; 84132; 84145; 84439; 84443; 85025; 85379; 85610; 85730; 87040; 87077; 87081; 87186; 87502; 87503; 87811; 92508; 92616; 93005; 93306; 95816; 97110; 97116; 97161; 97530; 97535; 99285; A6258; C1758; G0378; J0360; J0696; J1650; J1815; J2060; J2405; J3370; J3372; J3480; J7030; J7120; Q9967

== ENCOUNTER 2024-08-25 13:51 | Emergency (ER) | payer MEDICAID ==
[~2024-08-25] VITALS: Ht 175.3 cm; Wt 100.0 kg
[2024-08-25 13:52] VITALS: BP 134/113; PULSE 110; RESP 16; TEMP 98; O2SAT 98
== END 2024-08-25 15:34 | disposition left against medical advice (07) ==
LOC: ER 13:52
DX: K56.609 Unspecified intestinal obstruction, unspecified as to partial versus complete obstruction (principal); Z53.21 Procedure and treatment not carried out due to patient leaving prior to being seen by health care provider

== ENCOUNTER 2024-08-26 13:19 | Emergency (ER) | payer MEDICAID ==
[~2024-08-26] VITALS: Ht 172.7 cm; Wt 98.0 kg
[2024-08-26 16:02] VITALS: BP 123/94; PULSE 95; RESP 14; TEMP 96.9; O2SAT 97
== END 2024-08-26 19:50 | disposition left against medical advice (07) ==
LOC: ER 13:19
DX: R62.7 Adult failure to thrive (principal); Z91.018 Allergy to other foods; Z53.21 Procedure and treatment not carried out due to patient leaving prior to being seen by health care provider

== ENCOUNTER 2024-08-30 12:34 | Emergency (ER) | payer MEDICAID ==
[~2024-08-30] VITALS: Ht 175.3 cm; Wt 101.0 kg
[2024-08-30 13:04] VITALS: TEMP 98.2
[2024-08-30 14:22] LABS: BASOPHILS % (AUTO) 0.4 % (0-1); EOSINOPHILS % (AUTO) 0.2 % (0-6); HEMATOCRIT 41.1 % (35.0-45.0); HEMOGLOBIN 14.5 g/dl (12.0-16.0); LYMPHOCYTES # (AUTO) 0.6 X10'3 (1.1-4.8); LYMPHOCYTES % (AUTO) 6.6 % (21-51); MEAN CORPUSCULAR HEMOGLOBIN 31.6 PG (27.0-31.0); MEAN CORPUSCULAR HGB CONC 35.2 g/dL (33.0-36.5); MEAN CORPUSCULAR VOLUME 89.7 FL (78-98); MEAN PLATELET VOLUME 8.2 FL (7.4-10.4); MONOCYTES # (AUTO) 0.2 X10'3 (0-0.9); MONOCYTES % (AUTO) 2.1 % (2-12); NEUTROPHILS # (AUTO) 7.7 X10'3 (1.8-7.7); NEUTROPHILS % (AUTO) 90.7 % (42-75); PLATELET COUNT 226 X10'3 (140-440); RED BLOOD COUNT 4.58 X10'6 (4.20-5.60); RED CELL DISTRIBUTION WIDTH 14.1 % (11.5-14.5); WHITE BLOOD COUNT 8.5 X10'3 (4.5-11.0)
[2024-08-30 14:43] LABS: ALANINE AMINOTRANSFERASE 24 U/L (12-78); ALBUMIN 3.9 G/DL (3.4-5.0); ALBUMIN/GLOBULIN RATIO 1.3 (1.1-1.5); ALKALINE PHOSPHATASE 150 IU/L (46-116); ANION GAP 11 (8-16); ASPARTATE AMINO TRANSFERASE 7 U/L (10-37); BILIRUBIN,TOTAL 0.7 MG/DL (0.1-1.0); BLOOD UREA NITROGEN 16 MG/DL (7-18); BUN/CREATININE RATIO 22.9 (10.0-20.0); CALCIUM 9.7 MG/DL (8.5-10.1); CHLORIDE 102 MMOL/L (99-107); GLUCOSE 359 MG/DL (70-104); LIPASE 36 U/L (16-77); POTASSIUM 3.6 MMOL/L (3.5-5.1); SODIUM 139 MMOL/L (135-145); TOTAL CARBON DIOXIDE 25.9 MMOL/L (24-32); TOTAL PROTEIN 6.9 G/DL (6.4-8.2); eCRCL 89 ML/MIN; eGFR 85 ML/MIN
[2024-08-30] MEDS: ondansetron/PF 4mg/2ml inj IV ONE (15:36)
[2024-08-30] MEDS: normal saline 1000ML IV soln IVB ONE (15:36)
[2024-08-30] MEDS ORDERED: ONDA-243 PO (16:10)
[2024-08-30 16:41] VITALS: BP 154/99; PULSE 89; RESP 18; O2SAT 98
== END 2024-08-30 16:44 | disposition home or self-care (01) ==
LOC: ER 12:34
DX: R11.2 Nausea with vomiting, unspecified (principal); E11.42 Type 2 diabetes mellitus with diabetic polyneuropathy; E78.00 Pure hypercholesterolemia, unspecified; I10 Essential (primary) hypertension; M79.7 Fibromyalgia; J44.9 Chronic obstructive pulmonary disease, unspecified; F41.9 Anxiety disorder, unspecified; Z90.49 Acquired absence of other specified parts of digestive tract; Z90.89 Acquired absence of other organs; Z98.51 Tubal ligation status; Z98.84 Bariatric surgery status; F32.A Depression, unspecified
CPT/HCPCS: 36415; 80053; 83690; 85025; 93005; 96374; 99284; J2405; J7030

== ENCOUNTER 2024-08-31 15:17 | Emergency (ER) | payer MEDICAID ==
[~2024-08-31] VITALS: Ht 177.8 cm; Wt 101.0 kg
[2024-08-31 15:30] VITALS: PULSE 90; TEMP 98.1
[2024-08-31 20:56] VITALS: RESP 18
== END 2024-08-31 21:03 | disposition home or self-care (01) ==
LOC: ER 15:18
DX: S90.511A Abrasion, right ankle, initial encounter (principal); E11.42 Type 2 diabetes mellitus with diabetic polyneuropathy; E78.00 Pure hypercholesterolemia, unspecified; F32.A Depression, unspecified; F41.9 Anxiety disorder, unspecified; I10 Essential (primary) hypertension; M79.7 Fibromyalgia; J44.9 Chronic obstructive pulmonary disease, unspecified; Z90.49 Acquired absence of other specified parts of digestive tract; Z90.89 Acquired absence of other organs; Z98.51 Tubal ligation status; Z98.84 Bariatric surgery status; W19.XXXA Unspecified fall, initial encounter; Y93.89 Activity, other specified; Y92.89 Other specified places as the place of occurrence of the external cause; Y99.8 Other external cause status
CPT/HCPCS: 73610; 99283

== ENCOUNTER 2024-09-02 16:37 | Emergency (ER) | payer MEDICAID ==
[~2024-09-02] VITALS: Ht 175.3 cm; Wt 100.0 kg
[2024-09-02 16:47] VITALS: BP 152/119; PULSE 103; RESP 16; TEMP 98; O2SAT 99
== END 2024-09-02 21:20 | disposition left against medical advice (07) ==
LOC: ER 16:37
DX: Z53.21 Procedure and treatment not carried out due to patient leaving prior to being seen by health care provider (principal)